=== PATIENT | female | born 1990 | race Two or more races ===

== ENCOUNTER 2019-03-27 11:21 | Inpatient (IN) | payer OTHER ==
[~2019-03-27] VITALS: Ht 157.5 cm; Wt 73.5 kg
[2019-03-27] MEDS ORDERED: PRENATAL TABLE1 EAC1 PO (11:50)
[2019-03-27] MEDS ORDERED: [UNRECOGNIZED DRUG - CODE] (11:50)
== END 2019-03-29 14:22 | DRG 806 ==
LOC: LDR 11:21 → OB/GYN 11:21 → LDR 14:29 → OB/GYN 03-28 07:32
PROVIDERS: ADMIT Obstetrics & Gynecology
PROC: 10E0XZZ Delivery of Products of Conception, External Approach (ICD-10-PCS; principal; 2019-03-27)
PROC: 4A0HXFZ Measurement of Products of Conception, Cardiac Rhythm, External Approach (ICD-10-PCS; 2019-03-27)
DX: O69.81X0 Labor and delivery complicated by cord around neck, without compression, not applicable or unspecified (principal); O23.33 Infections of other parts of urinary tract in pregnancy, third trimester; Z37.0 Single live birth; Z3A.38 38 weeks gestation of pregnancy

== ENCOUNTER 2019-07-25 07:43 | Emergency (ER) | payer OTHER ==
[~2019-07-25] VITALS: Ht 157.5 cm; Wt 64.9 kg
[~2019-07-25 07:43] MED LIST: PRENATAL TABLE1 EAC1 PO; [UNRECOGNIZED DRUG - CODE]
[2019-07-25] MEDS ORDERED: ZITHROMAX200 MG PO (12:13)
== END 2019-07-25 12:23 | disposition home or self-care (01) ==
LOC: ER 07:43
DX: B34.8 Other viral infections of unspecified site (principal); R11.11 Vomiting without nausea; R19.7 Diarrhea, unspecified; R50.9 Fever, unspecified